=== PATIENT | female | born 1985 | race African-American/Black ===

== ENCOUNTER 2019-03-16 12:28 | Emergency (ER) | payer BC, MEDICAID ==
[~2019-03-16] VITALS: Ht 152.4 cm; Wt 102.5 kg
[~2019-03-16 12:28] MED LIST: PRENTAB28 PO
[2019-03-16 13:13] LABS: Urine Bacteria NONE SEEN /hpf (None Seen); Urine Blood Negative /uL (Negative); Urine Mucus FEW (None Seen); Urine Specific Gravity 1.023 (1.001-1.035); Urine WBC 2 /hpf (0 - 5)
[2019-03-16 13:50] LABS: Basophils # (auto) 0 uL; Eosinophils # (auto) 0.1 uL; Mean Corpuscular Volume 81.5 fL (80.0-100.0); Monocytes # (auto) 0.5 uL
[2019-03-16 13:56] LABS: Basophils % (auto) 0.4 % (0.0-2.0); Eosinophils % (auto) 1.4 % (0.0-7.0); Hematocrit 36.3 % (36.0-46.0); Hemoglobin 11.8 g/dL (12.2-16.2); Lymphocytes # (auto) 1.3 uL; Mean Corpuscular Hemoglobin 26.5 pg (28.0-32.0); Mean Corpuscular Hgb Conc. 32.5 g/dL (32.0-36.0); Monocytes % (auto) 8.4 % (0.0-12.0); Neutrophils # (auto) 4.2 uL; Neutrophils % (auto) 67.8 % (37.0-80.0); Platelet Count (auto) 251 10^3/uL (140-450); Red Blood Cells 4.46 10^6/uL (4.0-5.20); Red Cell Distribution Width 16.5 % (11.8-14.3); White Blood Cell 6.1 10^3/uL (4.4-10.8)
[2019-03-16 14:06] LABS: Albumin 3.7 g/dL (3.4-5.0); Calcium 8.5 mg/dL (8.5-10.1); Potassium 3.6 mmol/L (3.5-5.1)
[2019-03-16 14:09] LABS: BUN/Creatinine Ratio 8.3; Bilirubin, Total 0.2 mg/dL (0.2-1.0); Total Protein 7.6 g/dL (6.4-8.2)
[2019-03-16 16:08] VITALS: BP 105/56
== END 2019-03-16 17:05 | disposition home or self-care (01) ==
LOC: ER 12:28
DX: O23.41 Unspecified infection of urinary tract in pregnancy, first trimester (principal); Z3A.01 Less than 8 weeks gestation of pregnancy
CPT/HCPCS: 36415; 76801; 80053; 81001; 84702; 85025

== ENCOUNTER 2019-04-09 23:25 | Emergency (ER) | payer MEDICAID ==
[~2019-04-09] VITALS: Ht 157.5 cm; Wt 103.0 kg
[2019-04-09 23:34] VITALS: BP 112/61
[2019-04-10 00:02] LABS: Urine Bacteria NONE SEEN /hpf (None Seen); Urine Blood 3+ /uL (Negative); Urine WBC 275 /hpf (0 - 5)
[2019-04-10 00:07] LABS: Urine Specific Gravity 1.027 (1.001-1.035)
== END 2019-04-10 01:25 | disposition left against medical advice (07) ==
LOC: ER 23:25
DX: O20.8 Other hemorrhage in early pregnancy (principal); Z53.21 Procedure and treatment not carried out due to patient leaving prior to being seen by health care provider; Z3A.01 Less than 8 weeks gestation of pregnancy
CPT/HCPCS: 81001

== ENCOUNTER 2021-02-03 09:43 | Observation (INO) | payer MEDICAID ==
[~2021-02-03] VITALS: Ht 152.4 cm; Wt 99.8 kg
[2021-02-03] MEDS ORDERED: TERBUTALINE SULFATE 1 MG/ML 1ML VIAL SC SCH (10:30)
[2021-02-03] MEDS ORDERED: LACTATED RINGER'S 1,000 ML IV ONE (10:30)
[2021-02-03] MEDS ORDERED: TERBUTALINE SULFATE 1 MG/ML 1ML VIAL SC ONE (10:40)
[2021-02-03] MEDS ORDERED: BETAMETHASONE ACET (6MG/ML) 5ML VIAL IM ONE (11:45)
[2021-02-03] MEDS ORDERED: NIFEdipine 10 MG CAP PO ONE (11:45)
== END 2021-02-03 13:53 | disposition home or self-care (01) ==
LOC: LDRP 09:43
PROVIDERS: ADMIT Specialist; ATTEND Specialist
DX: O60.02 Preterm labor without delivery, second trimester (principal); O30.002 Twin pregnancy, unspecified number of placenta and unspecified number of amniotic sacs, second trimester; O99.322 Drug use complicating pregnancy, second trimester; F12.90 Cannabis use, unspecified, uncomplicated; Z3A.24 24 weeks gestation of pregnancy
CPT/HCPCS: 59025; 76815; 81002; 94760; 96372; G0378; J3105

== ENCOUNTER 2021-02-20 12:00 | Observation (INO) | payer MEDICAID ==
[~2021-02-20] VITALS: Ht 152.4 cm; Wt 102.5 kg
[2021-02-20] MEDS ORDERED: BETAMETHASONE ACET (30mg/5ml) 5ml Vial 6mg/ml IM ONE (12:30)
[2021-02-21] MEDS ORDERED: NIFE10CA3 PO (14:52)
== END 2021-02-20 13:00 | disposition home or self-care (01) ==
LOC: LDRP 12:00
PROVIDERS: ADMIT Specialist; ATTEND Specialist
DX: O26.872 Cervical shortening, second trimester (principal); O60.02 Preterm labor without delivery, second trimester; O99.322 Drug use complicating pregnancy, second trimester; F12.90 Cannabis use, unspecified, uncomplicated; Z3A.26 26 weeks gestation of pregnancy
CPT/HCPCS: 59025; 81002; 96372; G0378; J0702

== ENCOUNTER 2021-02-21 12:25 | Observation (INO) | payer MEDICAID ==
[2021-02-21] MEDS ORDERED: BETAMETHASONE ACET (6MG/ML) 5ML VIAL IM ONE (12:45)
[2021-02-21] MEDS ORDERED: NIFE10CA3 PO (14:52)
== END 2021-02-21 15:20 | disposition home or self-care (01) ==
LOC: LDRP 12:25
PROVIDERS: ADMIT Obstetrics & Gynecology; ATTEND Obstetrics & Gynecology
DX: O60.02 Preterm labor without delivery, second trimester (principal); O26.873 Cervical shortening, third trimester; O62.9 Abnormality of forces of labor, unspecified; O30.002 Twin pregnancy, unspecified number of placenta and unspecified number of amniotic sacs, second trimester; Z3A.26 26 weeks gestation of pregnancy
CPT/HCPCS: 59025; 96372; G0378